=== PATIENT | female | born 1960 | race Asian ===

== ENCOUNTER 2025-01-23 14:50 | Emergency (ER) | payer SELFPAY ==
[2025-01-23 17:29] LABS: BASOPHILS ABSOLUTE AUTO 0.06 K/uL (0.00-0.10); BASOPHILS PERCENT AUTO 0.7 % (0.1-1.3); EOSINOPHILS ABSOLUTE AUTO 0.06 K/uL (0.00-0.40); EOSINOPHILS PERCENT AUTO 0.7 % (0.0-5.4); IMMATURE GRAN ABSOLUTE AUTO 0.03 K/uL (0.00-0.23); IMMATURE GRAN PERCENT AUTO 0.3 % (0.0-0.7); LYMPHOCYTES ABSOLUTE AUTO 2.43 K/uL (0.8-3.3); LYMPHOCYTES PERCENT AUTO 26.7 % (11.4-47.7); MONOCYTES ABSOLUTE AUTO 0.87 K/uL (0.20-0.90); MONOCYTES PERCENT AUTO 9.6 % (3.3-12.6); NEUTROPHILS ABSOLUTE AUTO 5.65 K/uL (1.0-7.6); NEUTROPHILS PERCENT AUTO 62.0 % (40.0-78.1); PLATELET COUNT,PLT 268 K/uL (130-375); RED BLOOD CELL COUNT 4.63 M/uL (3.77-5.24); WHITE BLOOD CELL COUNT,WBC 9.1 K/uL (3.2-11.0)
[2025-01-23] MEDS: Alum Hydrox/Mag Hydrox/Simeth 15 ML, Lidocaine 2% 15 ML PO ONE (17:39)
[2025-01-23 17:54] LABS: BLOOD UREA NITROGEN,BUN 28.0 mg/dL (7-18); CARBON DIOXIDE,CO2 28.0 mmol/L (21-32); CHLORIDE,CL 101.0 mmol/L (100-108); CREATININE 1.6 mg/dL (0.6-1.0); EST CRCL DRUG DOSING (CG) 28.61 mL/min; ESTIMATED GFR 35.0 mL/min (>60); GLUCOSE RANDOM 96.0 mg/dL (74-106); POTASSIUM,K 4.2 mmol/L (3.6-5.2); SODIUM,NA 137.0 mmol/L (140-148); TROPONIN I HIGH SENSITIVITY 9.4 pg/mL (<=60.3)
== END 2025-01-23 19:49 | disposition home or self-care (01) ==
LOC: JP.ED 14:50
DX: F41.0 Panic disorder [episodic paroxysmal anxiety] (principal); I10 Essential (primary) hypertension; K21.9 Gastro-esophageal reflux disease without esophagitis; Z88.1 Allergy status to other antibiotic agents; Z79.899 Other long term (current) drug therapy
CPT/HCPCS: 36415; 80048; 84484; 85025; 99285; A9270

== ENCOUNTER 2025-04-13 18:12 | Inpatient (IN) | payer MEDICAID ==
[2025-04-13] MEDS: EPINEPHrine 1 MG/ML SDV IM ONE (18:27)
[2025-04-13] MEDS: diphenhydrAMINE 50 MG/ML SDV IVPUSH ONE (18:36)
[2025-04-13] MEDS: methylPREDNISolone Sodium Succinate 125 MG/2 ML SDV IV ONE (18:37)
[2025-04-13] MEDS: Sodium Chloride 0.9% 10 ML Syringe FLUSH PRN (18:38)
[2025-04-13] MEDS: LORazepam 2 MG/ML SDV IVPUSH ONE (19:10)
[2025-04-13] MEDS: Diltiazem 25 MG/5 ML SDV IVPUSH ONE (19:38)
[2025-04-13 20:35] LABS: BASOPHILS ABSOLUTE AUTO 0.07 K/uL (0.00-0.10); BASOPHILS PERCENT AUTO 0.7 % (0.1-1.3); EOSINOPHILS ABSOLUTE AUTO 0.11 K/uL (0.00-0.40); EOSINOPHILS PERCENT AUTO 1.0 % (0.0-5.4); IMMATURE GRAN ABSOLUTE AUTO 0.03 K/uL (0.00-0.23); IMMATURE GRAN PERCENT AUTO 0.3 % (0.0-0.7); LYMPHOCYTES ABSOLUTE AUTO 5.61 K/uL (0.8-3.3); LYMPHOCYTES PERCENT AUTO 53.1 % (11.4-47.7); MONOCYTES ABSOLUTE AUTO 0.86 K/uL (0.20-0.90); MONOCYTES PERCENT AUTO 8.1 % (3.3-12.6); NEUTROPHILS ABSOLUTE AUTO 3.88 K/uL (1.0-7.6); NEUTROPHILS PERCENT AUTO 36.8 % (40.0-78.1); PLATELET COUNT,PLT 265 K/uL (130-375); RED BLOOD CELL COUNT 4.44 M/uL (3.77-5.24); WHITE BLOOD CELL COUNT,WBC 10.6 K/uL (3.2-11.0)
[2025-04-13 20:49] LABS: A/G RATIO 0.9 (1.2-2.2); ALANINE AMINOTRANSFERASE,ALT 24 U/L (12-78); ASPARTATE AMNIOTRANSFERASE,AST 19 U/L (15-37); BILIRUBIN TOTAL 0.1 mg/dL (0.2-1.0); BLOOD UREA NITROGEN,BUN 23 mg/dL (7-18); CARBON DIOXIDE,CO2 23 mmol/L (21-32); CHLORIDE,CL 101 mmol/L (100-108); CREATININE 1.5 mg/dL (0.6-1.0); EST CRCL DRUG DOSING (CG) 30.52 mL/min; ESTIMATED GFR 38 mL/min (>60); GLUCOSE RANDOM 140 mg/dL (74-106); PROTEIN TOTAL,TP 8.4 g/dL (6.4-8.2); SODIUM,NA 138 mmol/L (140-148); TROPONIN I HIGH SENSITIVITY 6.9 pg/mL (<=60.3)
[2025-04-13 20:52] LABS: POTASSIUM,K 2.9 mmol/L (3.6-5.2)
[2025-04-13 21:12] LABS: TSH ULTRASENSITIVE 2.936 uIU/mL (0.358-3.740)
[2025-04-13] MEDS: Potassium Chloride 20 MEQ in Premix Bag 1 BAG IV ONE (21:32)
[2025-04-13] MEDS: Potassium Chloride 20 MEQ Tab.ER PO ONE (21:33)
[2025-04-13] MEDS: Diltiazem 100 MG in Sodium Chloride 0.9% 100 ML IV SCH (21:50)
[2025-04-13] MEDS ORDERED: LORazepam 2 MG/ML SDV IVPUSH PRN (23:48)
[2025-04-13] MEDS ORDERED: Magnesium Hydroxide 400 MG/5 ML Susp 30 ML Cup PO PRN (23:48)
[2025-04-13] MEDS ORDERED: Sodium Chloride 0.9% 10 ML Syringe FLUSH PRN (23:48)
[2025-04-13] MEDS ORDERED: Ondansetron 4 MG/2 ML SDV IV PRN (23:48)
[2025-04-13] MEDS ORDERED: Sennosides/Docusate Sodium 50-8.6 MG Tab PO PRN (23:48)
[2025-04-13] MEDS ORDERED: Ondansetron 4 MG Tab.DIS PO PRN (23:48)
[2025-04-14 06:10] LABS: PLATELET COUNT,PLT 243.0 K/uL (130-375); RED BLOOD CELL COUNT 4.2 M/uL (3.77-5.24); WHITE BLOOD CELL COUNT,WBC 10.7 K/uL (3.2-11.0)
[2025-04-14 06:21] LABS: BLOOD UREA NITROGEN,BUN 27.0 mg/dL (7-18); CARBON DIOXIDE,CO2 18.0 mmol/L (21-32); CHLORIDE,CL 109.0 mmol/L (100-108); CREATININE 1.8 mg/dL (0.6-1.0); EST CRCL DRUG DOSING (CG) 25.43 mL/min; ESTIMATED GFR 31.0 mL/min (>60); GLUCOSE RANDOM 150.0 mg/dL (74-106); POTASSIUM,K 5.1 mmol/L (3.6-5.2); SODIUM,NA 143.0 mmol/L (140-148)
== END 2025-04-15 12:00 | disposition home or self-care (01) | DRG 309 ==
LOC: JP.ED 18:12 → JP.ICU 23:20
PROVIDERS: ADMIT Nurse Practitioner; ATTEND Student in an Organized Health Care Education/Training Program
DX: I48.0 Paroxysmal atrial fibrillation (principal); N17.9 Acute kidney failure, unspecified; I12.9 Hypertensive chronic kidney disease with stage 1 through stage 4 chronic kidney disease, or unspecified chronic kidney disease; K21.9 Gastro-esophageal reflux disease without esophagitis; N18.9 Chronic kidney disease, unspecified; E87.6 Hypokalemia; Z88.8 Allergy status to other drugs, medicaments and biological substances; Z79.899 Other long term (current) drug therapy; Z79.01 Long term (current) use of anticoagulants; Z85.3 Personal history of malignant neoplasm of breast; Z85.51 Personal history of malignant neoplasm of bladder; Z90.10 Acquired absence of unspecified breast and nipple; Z98.890 Other specified postprocedural states
CPT/HCPCS: 36415; 80048; 80053; 83605; 83735; 84443; 84484; 85025; 85027; 93005; 96365; 96366; 96372; 96375; 99222; 99232; 99238; 99285-25; A9270-GY; J0169; J1163; J1200; J2060; J2919; J3480; J3490; J7030